=== PATIENT | male | born 1980 | race Caucasian/White ===

== ENCOUNTER 2017-11-22 10:00 | Outpatient (RCR) | payer OTHER, SELFPAY ==
--- NOTE | 2017-10-04 16:00 | HP.PTEVAL_ITS ---
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 Date of Evaluation: 10/04/17 Physical Therapist: Jaya Almaguer DPT, [place] - Visit Plan Frequency: 2-3x /Week Duration: 3 Months Plan: 2-3x/week for 6-10 weeks for ROM, patellar mobs, strength per protocol. Educate on gait progression. Pt is PWB with brace locked until 10/11, may unlock in therapy for gait training if painfree. ice as needed. - Subjective Subjective: Tore aCL in June stepping backward out of vehicle. Had infection in that knee the year prior rubbing something into knee doing a remodel. Had allograft surgery Aug 30, using cadaver. In brace locked in extension since. PWB 50% with crutch. Sees doc next week at 6 week bob. Doing QS and SLR at home but has not been diligent. Pain is non existent, stab here and there. Sleep is OK in brace. 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 May be in a brace up to a year. Basic ADLs ar eOK, steps and dressing are slow but fine. - Pain L knee Pain Intensity (Out of 10): 0 Pain Intensity Range: 0 - Objective Walks with L crutch I PWB L LE . Transfers I. L AROM knee -3-65, 68 PROM. R knee 0-130. SLR lags 5 degrees on L. hip strength flex 3, abd 3+, ext 4- on L , R is 4/5. hip and ankle AROM WFL, HS length is plenty, quad is hard to stretch due to limtied knee ROM. Swelling is minimal today. Patella very tight on L vs R maximally. Corrects walking to crutch in R UE easily and looks more natural. 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/30 Rehabilitation Potential: Good - Anticipated Interventions Patient/Client Instruction: Educate patient on: Condition, Plan of Care For the Purpose of:: To increase ROM, To improve nutrient delivery to tissue, To improve muscle performance and motor function, To improve ability to perform ADL's, To improve gait and locomotor functions Therapeutic Exercise to Include: Strength training, Passive ROM, Active ROM For the Purpose of:: To decrease pain, To increase ROM, To increase oxygenation perfusion, To improve muscle performance and motor function, To improve ability to perform ADL's, To improve ability of physical actions for home/community/work /leisure, To improve gait and locomotor functions Manual Therapy Techniques to Include: Mobilization Comment: patella For the Purpose of:: To increase ROM Cryotherapy (ice pack, ice massage): Yes For the Purpose of:: To decrease swelling/inflammation Thank you for the opportunity to evaluate your patient. For Medicare and Medicare HMO plans, please review the plan of care and approve it. It will need to be FAXED BACK to us at [phone] for Medicare purposes. Please let me know if there are questions or concerns regarding this plan of care. Physician Signature: Date:
--- NOTE | 2017-11-22 10:36 | HP.PTDCSUM_ITS ---
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 Discharge Date: 11/22/17 Please see the following information for a summary of their discharge status. - Subjective Subjective: Just saw Dr. Forbes who is getting him a brace. Otherwise he has been doing good and oftentimes forgets he had this surgery. Not good at doing HEP. Sleep is good. Not jumping over ditches or off ladders yet but doing all the basics at work. Is careful with L leg. Doctor said he looks good. Use caution until August. Will see doctor in 3 months. Ready to be done with PT. - Pain L knee Pain Intensity (Out of 10): 0 - Objective Objective/Function: 0-127 aROM L and R is to 133. Can stoop but it is still mildly painful L knee. Quad on L tight vs R. Steps are sligthly weak descending but can do them and skip step. Gait is normal. - Goals Goal 1:: 0-130 aROM without pain or pulling Goal Progress: Progressing Goal 2:: Walk as allowed by protocol FWB without gait deviations Goal Progress: Goal Met Goal 3:: Steps reciprocal without rail Goal Progress: Goal Met Goal 4:: Ready to return to full duty work Goal Progress: with brace - Plan Plan: D/C to HEP - D/C Information Discharge Comments: Pt doing well. Will f/u with doctor in 3 months and get brace from doc in meantime. I prioritized his HEP today and he will continue I vs with further PT(his choice) If there are questions or concerns regarding this patient's physical therapy, please feel free to call me at [phone]. Thank you for the referral of this patient. Sincerely, Jaya Almaguer, DPT, [place]
== END 2017-11-22 19:00 | disposition home or self-care (01) ==
LOC: PT 10:00
PROVIDERS: Visit Provider Orthopaedic Surgery
DX: Z98.890 Other specified postprocedural states (principal)
CPT/HCPCS: 97110; 97140; 97161; 97530